=== PATIENT | male | born 1985 | race African-American/Black ===

== ENCOUNTER 2016-11-24 19:27 | Emergency (ER) | payer OTHER ==
[~2016-11-24] VITALS: Ht 167.6 cm; Wt 66.9 kg
[~2016-11-24 19:27] MED LIST: ALBUTEROL SULF8.5 GM IH; Ativan PO; CYMBALTA30 MG PO; DILANTIN100 MG PO; KEPPRA500 MG PO; Milk Of Magnesia,MOM PO; PREDNISONE50 MG PO; SENOKOT S,PE1 TABLET PO; Tylenol Extra Streng PO; ZITHROMAX Z-PA250 MG PO
[2016-11-24] MEDS ORDERED: PREDNISONE20 MG PO (21:06)
[2016-11-24] MEDS ORDERED: LIDOCAINE20 MG/1 M5 PO (21:06)
[2016-11-24 21:25] VITALS: BP 119/68
== END 2016-11-24 21:27 | disposition home or self-care (01) ==
LOC: EME 19:27
DX: M27.3 Alveolitis of jaws (principal)
CPT/HCPCS: 99281; 99284; J1885; J7512

== ENCOUNTER 2017-08-10 10:07 | Emergency (ER) | payer OTHER ==
[~2017-08-10] VITALS: Ht 162.6 cm; Wt 63.3 kg
[~2017-08-10 10:07] MED LIST changes: +LIDOCAINE20 MG/1 M5 PO; +PREDNISONE20 MG PO
[2017-08-10] MEDS ORDERED: PROAIR RESPICL90 MCG IH (11:14)
[2017-08-10] MEDS ORDERED: PREDNISONE20 MG PO (11:14)
[2017-08-10 11:23] VITALS: BP 112/72
== END 2017-08-10 11:26 | disposition home or self-care (01) ==
LOC: EME 10:07
DX: J45.901 Unspecified asthma with (acute) exacerbation (principal); F41.9 Anxiety disorder, unspecified; F32.9 Major depressive disorder, single episode, unspecified; R56.9 Unspecified convulsions; F17.200 Nicotine dependence, unspecified, uncomplicated; F10.10 Alcohol abuse, uncomplicated; Z98.890 Other specified postprocedural states; Z88.0 Allergy status to penicillin; Z91.09 Other allergy status, other than to drugs and biological substances
CPT/HCPCS: 71020; 94640; 99281; 99284; J7512